=== PATIENT | female | born 1950 | race Caucasian/White ===

== ENCOUNTER 2022-12-24 08:51 | Outpatient (CLI) | payer OTHER | END 2022-12-24 09:04 | disposition home or self-care (01) | LOC: TOM 08:51 | PROVIDERS: ATTEND Internal Medicine Gastroenterology | DX: K56.50 Intestinal adhesions [bands], unspecified as to partial versus complete obstruction (principal); R19.5 Other fecal abnormalities; K57.92 Diverticulitis of intestine, part unspecified, without perforation or abscess without bleeding ==